=== PATIENT | male | born 1985 | race Caucasian/White ===

== ENCOUNTER 2018-08-31 08:12 | Day surgery (SDC) | payer BC ==
[~2018-08-31] VITALS: Ht 172.7 cm; Wt 87.1 kg
[~2018-08-31 08:12] MED LIST: BUPIVACAINE/PF 0.5% ONE; EPINEPHRINE 1 MG/ML, 1ML ONE
[2018-08-31] MEDS ORDERED: LACTATED RINGERS 1,000 ML IV SCH (09:03)
[2018-08-31] MEDS ORDERED: NONE PER PT (09:04)
[2018-08-31 09:07] VITALS: BP 132/86
[2018-08-31] MEDS ORDERED: FENTANYL PF 250 MCG/5ML ONE (09:23)
[2018-08-31] MEDS ORDERED: MIDAZOLAM 1 MG/ML, 2ML ONE (09:23)
[2018-08-31] MEDS ORDERED: PLEASE ENTER HEIGHT AND WEIGHT MC SCH (09:30)
[2018-08-31] MEDS ORDERED: GLYCOPYRROLATE 0.2MG/1ML, 5ML ONE (10:02)
[2018-08-31] MEDS ORDERED: NEOSTIGMINE 1 MG/ML, 10ML ONE (10:02)
[2018-08-31] MEDS ORDERED: CEFAZOLIN 1,000 MG ONE (10:02)
[2018-08-31] MEDS ORDERED: ROCURONIUM 10MG/ML,5ML ONE (10:02)
[2018-08-31] MEDS ORDERED: PROPOFOL 10 MG/ML, 20ML ONE (10:02)
[2018-08-31] MEDS ORDERED: SUCCINYLCHOLINE 20 MG/ML, 10ML ONE (10:02)
[2018-08-31] MEDS ORDERED: FENTANYL PF 100 MCG/2ML ONE (10:49)
[2018-08-31] MEDS ORDERED: HYDROmorphone 2 MG/ML, 1ML ONE (10:49)
[2018-08-31] MEDS ORDERED: OXYcodone 5 MG/5 ML ORAL.SOL UDC ONE (10:50)
[2018-08-31] MEDS ORDERED: KETOROLAC 30 MG/1 ML ONE (10:50)
[2018-08-31] MEDS: FENTANYL PF 100 MCG/2ML IV PRN ×2 (10:54→11:05)
[2018-08-31] MEDS ORDERED: METOCLOPRAMIDE 5 MG/ML, 2ML IV PRN (11:00)
[2018-08-31] MEDS ORDERED: LABETALOL 5MG/ML, 20ML IV PRN (11:00)
[2018-08-31] MEDS ORDERED: MEPERIDINE/PF 25MG/0.5ML IVPush PRN (11:00)
[2018-08-31] MEDS ORDERED: KETOROLAC 30 MG/1 ML IV PRN (11:00)
[2018-08-31] MEDS ORDERED: hydrALAzine 20 MG/ML, 1ML IV PRN (11:00)
[2018-08-31] MEDS ORDERED: ALBUTEROL SULFATE 2.5 MG/3 ML NPPB PRN (11:00)
[2018-08-31] MEDS ORDERED: ONDANSETRON 2MG/ML, 2ML IVPush PRN (11:00)
[2018-08-31] MEDS ORDERED: PROMETHAZINE 25 MG/ML, 1ML IV PRN (11:00)
[2018-08-31] MEDS ORDERED: OXYcodone 5 MG/5 ML ORAL.SOL UDC PO PRN (11:00)
[2018-08-31] MEDS ORDERED: HYDROmorphone 1 MG/ML, 1ML INJ IV PRN (11:00)
== END 2018-08-31 13:35 | disposition home or self-care (01) ==
LOC: OUT 08:12
PROVIDERS: ATTEND Surgery
DX: K80.10 Calculus of gallbladder with chronic cholecystitis without obstruction (principal); E78.00 Pure hypercholesterolemia, unspecified; Z72.89 Other problems related to lifestyle
CPT/HCPCS: 47562; 88304; J0171; J0330; J0690; J1885; J2250; J2704; J2710; J3010; J7120